=== PATIENT | female | born 1975 | race Caucasian/White ===

== ENCOUNTER 2018-03-22 09:45 | Inpatient (IN) | payer MEDICAID ==
[~2018-03-22] VITALS: Ht 165.1 cm; Wt 83.2 kg
[2018-03-22] VITALS (23 sets, daily range): BP systolic 92–142; BP diastolic 49–91; BMI 28.4
[2018-03-22] MEDS ORDERED: TRILEPTAL300 MG PO ×2 (09:55→09:56)
[2018-03-22] MEDS ORDERED: CARAFATE1 G PO (09:56)
[2018-03-22] MEDS ORDERED: ZANTAC300 MG PO (09:56)
[2018-03-22] MEDS ORDERED: CELEXA20 MG PO (09:57)
[2018-03-22] MEDS ORDERED: KEPPRA500 MG PO (09:57)
--- NOTE | 2018-03-22 11:06 | NUR ---
PT HAD SMALL SMOFT BM. PERICARE PROVIDED. STATLOCK PLACED ON JIN.
--- NOTE | 2018-03-22 11:13 | NUR ---
SOFT WRIST RESTRAINTS REMOVED AND ROM PROVIDED AT THIS TIME. PT RESTING IN BED QUIETLY AT THIS TIME. WILL CON'T TO MONITOR PATIENT FOR CHANGES.
--- NOTE | 2018-03-22 11:35 | NUR ---
PT HAD SMALL SOFT BM. PERICARE PROVIDED. UPON TURNING PT NOTED TO HAVE BLOOD COMING FROM NOSE. DRIED BLOOD NOTED AROUND NARES. EMS HAD REPORTED TRAUMATIC ATTEMPT AT NGT AT SENDING FACILITY
[2018-03-22 11:39] LABS: HEMATOCRIT 37.7 % (36.0-48.0); HEMOGLOBIN 11.7 g/dL (12-16); MCH 30.2 pg (26.0-34.0); MCV 97.4 fL (80.0-100.0); MEAN PLATELET VOLUME 10.3 fL (7.4-10.4); PLATELET COUNT 333 10x3/uL (130-400); RBC 3.87 10x6/uL (4.00-5.40); RDW 13.5 % (11.5-14.5); WBC 27.7 10x3/uL (4.8-10.8)
[2018-03-22 12:02] LABS: ALBUMIN 2.8 g/dL (3.4-5.0); ALKALINE PHOSPHATASE 94 U/L (46-116); ALT (SGPT) 45 U/L (10-68); BILIRUBIN - TOTAL 0.19 mg/dL (0.2-1.3); CALC OSMOLALITY 328 mosm/kg (275-300); CALCIUM 7.5 mg/dL (8.5-10.1); CARBON DIOXIDE 12.3 mmol/L (21.0-32.0); CKMB 3.6 U/L (0.0-3.6); CREATINE KINASE 318 UL (21-215); CREATININE - SERUM 1.9 mg/dL (0.6-1.3); GLUCOSE 379 mg/dL (74-106); MAGNESIUM - SERUM 1.8 mg/dL (1.8-2.4); POTASSIUM - SERUM 3.4 mmol/L (3.5-5.1); PROTEIN - SERUM 6.6 g/dL (6.4-8.2); SODIUM 156 mmol/L (136-145); UREA NITROGEN 23 mg/dL (7-18); eGFR NON AFRICAN AMERICAN 31 mL/min (90-120)
[2018-03-22 12:03] LABS: CHLORIDE - SERUM 117 mmol/L (98-107)
[2018-03-22 12:12] LABS: LYMPHOCYTES 6 % (15-50); MONOCYTES 1 % (2-11); NEUTROPHILS 85 % (40-80); PLATELET ESTIMATE NORMAL
--- NOTE | 2018-03-22 12:56 | NUR ---
REC'D TO ROOM CV 02. TRANSFERRED TO ICU BED BY TOTAL LIFT. CONNECTED TO MONITOR AND VS OBTAINED. #7.5 OETT PATENT AND CONNECTED TO VENT WITH FOLLOWING SETTINGS TV 600 FIO2 50% AC 10 PEEP +5. JIN PATENT WITH CLEAR YELLOW URINE. WRISTS RESTRAINED BELLA AND SIDE RAILS UP X2. 1305: OGT PLACED BY ROBERTH HOFFMANN WITH IMMEDIATE RETURN DARK BROWN STOMACH CONTENTS. POSITIVE PLACEMENT VERIFIED BY AUSCULTATION OF AIR BOLUS.
[2018-03-22] MEDS ORDERED: SEROQUEL XR200 MG PO (13:56)
--- NOTE | 2018-03-22 16:55 | NUR ---
1300-DR AHMADI NOTIFIED OF ADMIT-FURTHER ORDERS RECIEVED -DR OLSON NOTIFIED OF VERBAL CONSULT FOR TRIALYSIS CATHETER PLACEMENT-CONSENT OBTAINED FROM PARENTS-PT SEDATED ON VENT-QUESTIONS ANSWERED 1345-DR OLSON AT [facility]-R JUGULAR TRIALYSIS PLACED WITH OUT DIFFICULTY-PORT CXR DONE TO CONFIRM 1430-DR AHMADI INFORMED OF TRIALYSIS CATHETER AVAILABLE-DR ESPINO NOTIFIED OF RENAL CONSULT FOR EMERGENT DIALYSIS TREATMENT-SUSPECTED DRUG OVER DOSE OF UNKNOWN SUBSTANCES-STRONG POSSIBILTY-ANTIFREEZE? 1600-[facility] AT [facility]-CONSENT OBTAINED FROM PARENTS-AND QUESTIONS ANSWERED -1640-DIALYSIS IN PROGRESS
--- NOTE | 2018-03-22 20:00 | NUR ---
REPORT RECEIVED CARE ASSUMED. INITIAL SHIFT ASSESSMENT COMPLETED SEE FLOWSHEET. PT AT THIS TIME WITH EYES OPEN AND RESPONSIVE ALTHOUGH NOT FOLLOWING COMMANDS. REMAINS ON MECHANICAL VENTILATION PER ETT TOLERATING WELL. MONITORED PER STANDARD CVICU PROTOCOL WITH ALL ALARMS SET, VERIFIED AND AUDIBLE AT NURSES STATION. PT IS VISIBLE FROM NURSES STATION. BED IN LOW POSITION. IVF AND TUBING LABELED PER PROTOCOL AND NOT DUE TO BE CHANGED AT THIS TIME. IV FLUIDS, RATES AND CHANGES DOCUMENTED PER FLOWSHEET.
--- NOTE | 2018-03-22 20:41 | NUR ---
DR. AHMADI NOTIFIED OF NEW ABG RESULTS. ORDER TO CONT LIGHT SEDATION THROUGH THE NIGHT, WILL START CPAP TRIALS IN AM. K+ 3.0 - NO COVERAGE ORDERED AT THIS TIME.
--- NOTE | 2018-03-22 21:00 | NUR ---
FAMILY AT BEDSIDE UPDATE GIVEN QUESTIONS ANSWERED. SECURITY WORD ESTABLISHED WITH SPOUSE
--- NOTE | 2018-03-22 22:18 | NUR ---
CALL PLACED TO DR. AHMADI TO VERIFY REGARDING ADMINISTRATION OF HOME MED OF KEPPRA AND TRIPLEPTAL. DR AHMADI ORDERED THESE MEDS PER DOCTOR'S ORDER AND STATED OTHER HOME MEDS TO BE ADDRESSED TOMORROW
--- NOTE | 2018-03-22 22:20 | NUR ---
SPOKE WITH FOURDRINIER WIRE WEAVER OF NEED FOR MEDS ORDERED. SHE WILL OBTAIN AND BRING TO UNIT TO BE ADMINISTERED WHEN AVAILABLE.
--- NOTE | 2018-03-22 23:00 | NUR ---
SHIFT REASSESSMENT COMPLETED. SEDATION VACATION DONE FOR NEURO ASSESSMENT. PT BECAME AGGITATED EYES OPEN TRACKING WITH EYES DID NOT FOLLOW COMMANDS ALTHOUGH MOVING ALL EXTREMETIES. DIFFICULT TO ASSERTAIN WHETHER PT COULD NOT OR WOULD NOT FOLLOW COMMANDS. SEDATION RESUMED DUE TO INCREASING AGGITATION. PT REMAINS TOTAL CARE AT THIS TIME AND IS BEING TURNED AND REPOSITIONED FOR COMFORT. PILLOWS ARE BEING USED TO PROVIDE SUPPORT, RELIEVE PRESSURE ELEVATE ARMS AND FLOAT HEELS. RT HAS BEEN NOTIFIED OF PLAN TO WEAN IN AM.
[2018-03-23] VITALS (23 sets, daily range): BP systolic 92–132; BP diastolic 53–89; BMI 27.6
--- NOTE | 2018-03-23 01:00 | NUR ---
WELDER/INSTALLER NOTIFIED UNABLE TO OBTAIN TRIPLEPTAL UNTIL PHARMACY ARRIVES IN AM. PT HAS HAD NO SEIZURE ACTIVITY THIS SHIFT ALTHOUGH HAS HAD SOME MINOR TREMBLING/SHAKING WHEN SEDATION TURNED OFF FOR VACATION. RESTING AT THIS TIME
--- NOTE | 2018-03-23 03:00 | NUR ---
SHIFT REASSESSMENT COMPLETED SEE FLOWSHEET. NO SIGNIFICANT CHANGES. BATH GIVEN
--- NOTE | 2018-03-23 04:15 | NUR ---
PT HAS BEEN RIDING THE VENT. SEDATION IS BEING TITRATED TO ASSIST PT WITH MORE AWARENESS AND ALERTNESS. CONTINUES TO OPEN EYES DOES MOVE EXTREMETIES BUT DOES NOT FOLLOW ANY COMMANDS.
[2018-03-23 05:05] LABS: BASOPHILS 0.1 % (0-2); EOSINOPHILS 0.1 % (0-7); HEMATOCRIT 31.1 % (36.0-48.0); HEMOGLOBIN 10.2 g/dL (12-16); IMMATURE GRANULOCYTES 0.4 % (0-5); LYMPHOCYTES 12.3 % (15-50); MCHC 32.8 g/dL (31.0-37.0); MEAN PLATELET VOLUME 10.1 fL (7.4-10.4); MONOCYTES 7.8 % (2-11); NEUTROPHILS 79.3 % (40-80); RDW 13.3 % (11.5-14.5)
[2018-03-23 05:07] LABS: MCV 91.5 fL (80.0-100.0); PLATELET COUNT 249 10x3/uL (130-400); WBC 14.3 10x3/uL (4.8-10.8)
[2018-03-23 05:21] LABS: ALBUMIN 2.3 g/dL (3.4-5.0); ANION GAP 13.1 mmol/L (8-16); BILIRUBIN - TOTAL 0.27 mg/dL (0.2-1.3); CALCIUM 7.4 mg/dL (8.5-10.1); CARBON DIOXIDE 30.5 mmol/L (21.0-32.0); CREATININE - SERUM 2.9 mg/dL (0.6-1.3); MAGNESIUM - SERUM 1.3 mg/dL (1.8-2.4); PHOSPHOROUS 2.9 mg/dL (2.5-4.9); POTASSIUM - SERUM 2.6 mmol/L (3.5-5.1); PROTEIN - SERUM 5.8 g/dL (6.4-8.2)
--- NOTE | 2018-03-23 06:00 | NUR ---
SPOKE WITH DR. AHMADI REGARDING LABS SPECIFICALLY POTASSIUM AND MAG. NEW ORDERS RECEIVED AND REPEATED
--- NOTE | 2018-03-23 07:00 | NUR ---
REPORT RECIEVED FROM THE OFF GOING RN. SEE ASSESSMENT IN THE PTS FLOW SHET. DR ESPINO IN THE PTS ROOM. PT SEDATED ON THE VENT. PT NO FOLLOWING COMMANDS. VSS AT THIS TIME. CALL LIGTH IN REACH. WILL CONT POC.
--- NOTE | 2018-03-23 07:45 | NUR ---
DIPROVAN TURNED OFF. WILL MONITOR PT.
--- NOTE | 2018-03-23 08:15 | NUR ---
PT EYES ARE OPEN AND THE PT IS BREATHING OVER THE VENTILATOR. FAMILY AT THE PTS BEDSIDE TALKING WITH THE PT. PT EYES ARE OPEN AND RESPONDS TO VERBAL STIMULI AND WILL OCCASIONALLY ANSWER YES AND NO QUESTIONS BY SHAKING HER HEAD UP AND DOWN AND SIDE TO SIDE. PT WILL NOT HOWEVER FOLLOW COMMANDS SUCH SQUEEZING HER HANDS AND WIGGELING HER TOES. PT SOMEWHAT RESTLESS AND ABLE TO MOVE ALL EXTRIMITES. DR HUSSEIN NOTIFIED AND WAS ORDERD TO CONSULT PULMONOLOGY. DR HOLLOWAY CALLED AND NOTIFIED. DR WERNER CALLED AND STATED TO KEEP THE PT SEDATED. DIRPOVAN WAS RESTARTED. VSS AT THIS TIME. WILL CONT POC.
[2018-03-23 08:31] LABS: AMYLASE - SERUM 42 U/L (25-115); LIPASE 75 U/L (73-393)
[2018-03-23 08:43] LABS: INR 1.36 (0.85-1.17); PROTIME 16.2 SECONDS (11.6-15.0)
[2018-03-23 09:18] LABS: APPEARANCE CLOUDY (CLEAR); COLOR PINK (YELLOW); UDS - AMPHET NEGATIVE QUAL (NEGATIVE); UDS - BARB NEGATIVE QUAL (NEGATIVE); UDS - BENZO POSITIVE QUAL (NEGATIVE); UDS - COCAINE NEGATIVE QUAL (NEGATIVE); UDS - OPIATE NEGATIVE QUAL (NEGATIVE); UDS - PCP NEGATIVE QUAL (NEGATIVE); UDS - THC NEGATIVE QUAL (NEGATIVE)
[2018-03-23 09:19] LABS: BILIRUBIN NEGATIVE (NEGATIVE); EPITHELIAL CELLS RARE /hpf (0-5); GLUCOSE 50 mg/dL (NEGATIVE); KETONE NEGATIVE (NEGATIVE); NITRITE NEGATIVE (NEGATIVE); PROTEIN 3+ mg/dL (NEGATIVE); RED CELLS - URINE >50 /hpf (0-5); UROBILINOGEN NORMAL (NORMAL); WHITE CELLS - URINE 0-5 /hpf (0-5)
[2018-03-23 09:20] LABS: BACTERIA MODERATE /hpf (NONE SEEN); MUCUS <1+ /lpf (NONE SEEN)
--- NOTE | 2018-03-23 09:46 | CN ---
PATIENT NAME:STELLA LYLES MEDICAL RECORD: [id number] : 79 LOCATION:[facility].CV02 ADMIT DATE: 03/22/18 ACCOUNT: [id number] CONSULTING PHYSICIAN: MARLYN ESPINO MD REFERRING PHYSICIAN: RODRIGO BONILLA MD DATE OF CONSULTATION: 03/22/2018 NEPHROLOGY CONSULTATION REASON FOR CONSULTATION: Acute kidney injury with unknown ingestion, metabolic acidosis. HISTORY OF PRESENT ILLNESS: A 42-year-old female transferred to Dr. Bonilla, intubated with respiratory failure. She had remained at OSH until 7:00 p.m. the night before for presumed Benadryl overdose and remained obtunded and was concerned for narcotic and polysubstance abuse. The attending physician saw the patient and transferred her for higher level of care. Upon receiving, Dr. Bonilla called me from the Emergency Room where we have arranged for dialysis. REVIEW OF SYSTEMS: Unobtainable. PAST MEDICAL HISTORY: Unspecified convulsions or seizure disorder, multiple suicide attempts, cellulitis, depression, incomplete database. MEDICATIONS: Reported home medications are noted as Trileptal 300 mg b.i.d., Zantac 150 b.i.d., Carafate 1 g a.c. and at bedtime, Celexa 20 b.i.d., and Keppra 500 b.i.d. ALLERGIES: MULTIPLE ALLERGIES, WHICH INCLUDE SULFA AND LEVAQUIN. SOCIAL HISTORY: Just indicated some drug use. Did not indicate alcohol or tobacco. She apparently is . FAMILY HISTORY: Unobtainable. PHYSICAL EXAMINATION: VITAL SIGNS: Blood pressure 138/88, 90% pulse ox, 97.8 temperature, respiratory rate 17. GENERAL: Intubated, unresponsive female. HEENT: Normocephalic with no trauma. NECK: Supple neck with no JVD or lymphadenopathy. LUNGS: Coarse bilaterally. CHEST: Regular rhythm. S1 and S2, without a rub. ABDOMEN: With positive bowel sounds. No guarding EXTREMITIES: No clubbing, cyanosis, or edema. Nonlateralizing and no rashes are noted. LABORATORY DATA: White count was 27, H&H 11/37, platelet count 333. Sodium 156, potassium 3.4, chloride 117, carbon dioxide 12, BUN 23, creatinine 1.9, glucose 379, magnesium 1.8. Total bilirubin 0.19. ABG significant with a pH of 7.096, CO2 of 18, O2 521. ASSESSMENT AND PLAN: 1. Acute kidney injury with metabolic acidosis. Conservative treatment with hemodialysis, catheter being placed and dialysis performed. We will see if we CONSULT REPORT [id number] STELLA LYLES can obtain more history, but I am not sure family is aware of what she ingested either. 2. Hyperglycemia. Did not see a diagnosis of diabetes or medication and we will follow her sugars. 3. Metabolic acidosis. Dialysis with bicarbonate drip. 4. Hypernatremia. We will have to dialyze her. I discussed with the dialysis nurse regarding her sodium bath. 5. Anemia. We will follow her hematocrit. 6. Suicidal ideation and depression. 7. Seizure disorder according to her medications, but incomplete database here as well. 8. Unknown substance abuse. PLAN: 1. Dialysis. 2. We will follow with you. 3. Antibiotics per primary team. 4. Concerned about her mental status in her history. TRANSINT:[id number] Voice Confirmation ID: [id number] DOCUMENT ID: [id number] MARLYN ESPINO MD at 0946 CC: [id number] DICTATION DATE: 03/23/18 07 PRECISION INSPECTOR: 03/23/18 0917 ADM IN [place] [id number] [place] [id number]
--- NOTE | 2018-03-23 11:27 | NUR ---
DR HOLLOWAY IN THE UNIT.
[2018-03-23 13:00] LABS: ANION GAP 12.7 mmol/L (8-16); CALCIUM 7.8 mg/dL (8.5-10.1); CARBON DIOXIDE 31.1 mmol/L (21.0-32.0)
[2018-03-23 13:01] LABS: MAGNESIUM - SERUM 2.3 mg/dL (1.8-2.4); POTASSIUM - SERUM 3.8 mmol/L (3.5-5.1)
--- NOTE | 2018-03-23 13:11 | NUR ---
LABS RECEIVED. DR FIERRO CALLED AND NOTIFIED. HE IS AWARE OF THE RISE IN BUN AND CREA. NO NEW ORDERS.
--- NOTE | 2018-03-23 13:26 | NUR ---
NON PHARMALOGICAL INTERVENTIONS UNCCUSSEFUL TO BRING HER TEMP DOWN. 102.1 PRN TYLENOL GIVEN.
--- NOTE | 2018-03-23 15:21 | NUR ---
LABORATORY CALLED AND REMINDED TO COLLECT BLOOD CULTUR
--- NOTE | 2018-03-23 15:35 | NUR ---
ERMELINDA PROVIDED FOR THE PT.
--- NOTE | 2018-03-23 16:35 | NUR ---
NO LABOTORY TECH AT THE PTS BEDSIDE FOR BLOOD CULTURE. THEY WHERE CALLED AND NOTIFIED AND REMINDED TO COLLECT BLOOD SAMPLE.
--- NOTE | 2018-03-23 17:24 | NUR ---
PRODUCT DESIGNER AT THE PTS BEDSIDE. BLOOD CULTURE OBTAINED BY TRAILYSIS PORT COLLECTED BY ME AND THE CUPOLA HOIST OPERATOR COLLECTED THE PERIPHRIAL.
--- NOTE | 2018-03-23 19:00 | NUR ---
TODAYS SHIFT ASSESSMENT COMPLETED BUT DATED FOR 03/22/18 AND TIMED 1900. REPORT RECEIVED CARE ASSUMED INIIAL SHIFT ASSESSMENT COMPLETED SEE FLOWSHEET. PT REMAINS ON MECHANICAL VENTILATION AND IS SEDATED WITH DIPROVAN. ALL IVF AND IV LINES ARE CURRENT AND DATED AND TIMED APPROPRIATE. ALL IVF AND RATES/CHANGES DOCUMENTED ON IV GTT FLOWSHEET. IV TUBING/LINE CHANGES DOCUMENTED ON MAY WHEN NEW BAG OF FLUID HUNG. PT CONTINUES TO HAVE A NEUROLOGICAL DEFICIT. DIPROVAN TURNED OFF FOR ASSESSMENT AND PT REMAINS CONFUSED. ONCE IN A GREAT WHILE SHE FOLLOWS A COMMAND BUT FOR THE MOST PART STARES AT OR AROUND IN SPACE. PT CONTINUES TO BE MONITORED PER STANDARD CVICU PROTOCOL WITH ALL ALARMS SET, VERIFIED AND AUDIBLE AT NURSES STATION. BED IN LOW POSITION AND PT IS VISIBLE FROM NURSES STATION
--- NOTE | 2018-03-23 21:00 | NUR ---
FAMILY AT BEDSIDE. QUESTIONS ASKED AND ANSWERED. UPDATE GIVEN. PT MADE NO EFFORT TO ENGAGE WITH FAMILY. SEDATION IS ON AT 45MCK/KG/MIN MEDS GIVEN AFTER VERIFYING PLACEMENT OF NGT WITH AIR BOLUS APPROPRIATE. SEE MAR FOR DOCUMENTATION
--- NOTE | 2018-03-23 22:00 | NUR ---
CALL RECEIVED FROM OJ GAONA. SECURITY WORD VERIFIED AND UPDATE GIVEN.
--- NOTE | 2018-03-23 23:00 | NUR ---
PT INCONTINENT OF LIQUID STOOL PERICARE AND F/C CARE DONE AND BED BATH GIVEN. LINENS CHANGED, PT TOLERATED WELL
[2018-03-24] VITALS (36 sets, daily range): BP systolic 91–133; BP diastolic 52–96; Ht 165.1 cm; Wt 83.2 kg
--- NOTE | 2018-03-24 01:00 | NUR ---
PT RESTING WELL. NO SIGNIFICANT CHANGES
--- NOTE | 2018-03-24 03:00 | NUR ---
PT INCONTINENT OF STOOL PERICARE F/C CARE DONE CONTINUE TO TURN AND REPOSITION Q2H WITH PILLOWS TO ELEVATE ARMS, FLOAT HEELS, PROVIDE SUPPORT AND RELIEVE PRESSURE. SHIFT REASSESSMENT COMPLETED SEE FLOW SHEET.
--- NOTE | 2018-03-24 04:45 | NUR ---
RT AT BESIDE FOR ABG'S TITRATING FIO2 DOWN DUE TO PO2
--- NOTE | 2018-03-24 04:45 | NUR ---
VENT CHANGED TO RATE OF 10 AND F1O2 30%.
--- NOTE | 2018-03-24 05:15 | NUR ---
LABS DRAWN AND SENT FOR ANALYSIS.
[2018-03-24 05:21] LABS: EOSINOPHILS 1.9 % (0-7); HEMATOCRIT 27.7 % (36.0-48.0); HEMOGLOBIN 9.3 g/dL (12-16); IMMATURE GRANULOCYTES 0.1 % (0-5); LYMPHOCYTES 8.2 % (15-50); MCH 30.3 pg (26.0-34.0); MCHC 33.6 g/dL (31.0-37.0); MCV 90.2 fL (80.0-100.0); MEAN PLATELET VOLUME 10.2 fL (7.4-10.4); MONOCYTES 6.4 % (2-11); NEUTROPHILS 82.4 % (40-80); RBC 3.07 10x6/uL (4.00-5.40); RDW 13.4 % (11.5-14.5)
[2018-03-24 05:34] LABS: PLATELET COUNT 173 10x3/uL (130-400)
[2018-03-24 06:09] LABS: CALCIUM 7.8 mg/dL (8.5-10.1); CARBON DIOXIDE 28.2 mmol/L (21.0-32.0); CHLORIDE - SERUM 99 mmol/L (98-107); CREATINE KINASE 319 UL (21-215); GLUCOSE 99 mg/dL (74-106); MAGNESIUM - SERUM 2.3 mg/dL (1.8-2.4); SODIUM 142 mmol/L (136-145)
[2018-03-24 06:16] LABS: CALC OSMOLALITY 289 mosm/kg (275-300); CREATININE - SERUM 5.7 mg/dL (0.6-1.3); PHOSPHOROUS 4.8 mg/dL (2.5-4.9); POTASSIUM - SERUM 3.1 mmol/L (3.5-5.1); UREA NITROGEN 33 mg/dL (7-18); eGFR NON AFRICAN AMERICAN 9 mL/min (90-120)
[2018-03-24 06:19] LABS: CKMB 1.3 U/L (0.0-3.6)
--- NOTE | 2018-03-24 08:52 | NUR ---
PT TURNED AND MOUTH CARE COMPLETED. FAMILY AT BS. POC FOR TODAY REVIEWED. DR ESPINO HERE THIS AM. REC'D AND NOTED ORDERS.
--- NOTE | 2018-03-24 11:17 | NUR ---
HD IN PROGRESS. TITRATED DIPROVAN TO OFF ORDERED BY DR LEAL. DR HUSSEIN HERE.
--- NOTE | 2018-03-24 11:36 | NUR ---
PT RESPONDS TO TACTILE STIMULI WITH FACIAL GRIMACING. DOES NOT FOLLOW COMMAND AT THIS POINT. VENT WEANING PER RT.
--- NOTE | 2018-03-24 13:05 | NUR ---
HD COMPLETED. UF 1L. VSS, FAMILY AT BS.
--- NOTE | 2018-03-24 16:44 | OP ---
PATIENT NAME: STELLA LYLES MEDICAL RECORD: [id number] :79 LOCATION:[facility] D.CV02 ADMISSION DATE:03/22/18 SURGEON: CHANTE OLSON MD DATE OF OPERATION: 03/22/2018 PREOPERATIVE DIAGNOSES: 1. Overdose in need of emergent hemodialysis. 2. Respiratory failure requiring mechanical ventilation. POSTOPERATIVE DIAGNOSES: 1. Overdose in need of emergent hemodialysis. 2. Respiratory failure requiring mechanical ventilation. PROCEDURE: Right neck Trialysis catheter (non-cuffed, non-tunneled 3-lumen hemodialysis catheter). SURGEON: Chante Olson MD BRIM STIFFENER: None. BLOOD LOSS: Minimal. ANESTHESIA: Local. COMPLICATIONS: None. The risks, possible complications and alternatives to the procedure were explained to the patient's family member and a consent form was signed. OPERATIVE COURSE: The patient was seen in the CVICU. The entire procedure was performed in the presence of a female nurse. The patient was positioned in the Trendelenburg position. The right neck was sterilely prepped and draped as was the right upper chest. A local anesthetic was used to infiltrate the skin and subcutaneous tissue at the base of the right neck. I percutaneously accessed the right subclavian vein utilizing an antegrade supraclavicular approach. A guidewire passed easily. A small skin lucy was accomplished. A vessel dilator was used to dilate the subcutaneous tract. A short Trialysis catheter was inserted to the hub. It was sutured in place times 3. All lumens flushed easily and aspirated dark, nonpulsatile blood. A stat portable chest x-ray revealed adequate placement of the Trialysis catheter without radiographic evidence of complication. TRANSINT:[id number] Voice Confirmation ID: [id number] DOCUMENT ID: [id number] OPERATIVE REPORT [id number] STELLA LYLES CHANTE OLSON MD at 1644 CC: [id number] DICTATION DATE: 03/22/181933 ELECTRICAL FITTER: 03/22/182042 ADM IN [place] [id number] [place] [address]
--- NOTE | 2018-03-24 17:42 | MORECARE ---
CASE MANAGEMENT DISCHARGE SUMMARY PATIENT: STELLA LYLES UNIT: [id number] ADM DATE: 03/22/18 AGE: 42 : [birth year] SEX: F ROOM/BED: [facility] AUTHOR: GHASSAN JARAMILLO PHYSICIAN: REFERRING PHYSICIAN: RODRIGO AHMADI MD DATE OF SERVICE: 03/24/18 Discharge Plan Patient Name: STELLA LYLES Facility: [facility]:[place] : 1975 Planned Disposition: Anticipated Discharge Date: Discharge Date: Expected LOS: Initial Reviewer: [email or web address] Initial Review Date: 03/24/2018 Generated: 03/24/18 6:42 pm Patient Name: STELLA LYLES Page [id number] at 1742 All edits/amendments must be made on the electronic document DICTATION DATE: 03/24/181741 PAPERHANGER AND PAINTER: MIGUELINA 03/24/181741 RPT#: [id number] DC DATE: STATUS: ADM IN [facility] [address] [place] [address] END OF REPORT
--- NOTE | 2018-03-24 17:55 | MORECARE ---
CASE MANAGEMENT DISCHARGE SUMMARY PATIENT: STELLA LAKHANI UNIT: [id number] ADM DATE: 03/22/18 AGE: 42 : [birth year] SEX: F ROOM/BED: [facility] AUTHOR: GHASSAN JARAMILLO PHYSICIAN: REFERRING PHYSICIAN: RODRIGO AHMADI MD DATE OF SERVICE: 03/24/18 Discharge Plan Patient Name: STELLA LAKHANI Facility: [facility]:[place] : 1975 Planned Disposition: Anticipated Discharge Date: Discharge Date: Expected LOS: Initial Reviewer: [email or web address] Initial Review Date: 03/24/2018 Generated: 03/24/18 6:55 pm DCPIA - Discharge Planning Initial Assessment Updated by [email or web address]: Yeni Stafford on 03/24/18 5:53 pm * Is the patient Alert and Oriented? No * How many steps to enter\exit or inside your home? * PCP Darwin Martin [place] * Pharmacy [facility] * Preadmission Environment Home with Family * ADLs Independent * Equipment None * List name and contact numbers for known caregivers / representatives who currently or will assist patient after discharge: Saji Lakhani - - [phone] Noris Lakhani - Mother- n-law [phone] * Verbal permission to speak to the caregivers and representatives has been obtained from the patient. N/A * Community resources currently utilized None * Additional services required to return to the preadmission environment? No * Can the patient safely return to the preadmission environment? Yes * Has this patient been hospitalized within the prior 30 days at any hospital? Yes Last DP export: 03/24/18 4:42 pm Patient Name: STELLA LAKHANI Page [phone] at 1755 All edits/amendments must be made on the electronic document DICTATION DATE: 03/24/181754 VEHICLE REFINISHER: MIGUELINA 03/24/181754 RPT#: [id number] DC DATE: STATUS: ADM IN [facility] [address] [place] [address] END OF REPORT
--- NOTE | 2018-03-24 18:02 | MORECARE ---
CASE MANAGEMENT DISCHARGE SUMMARY PATIENT: STELLA LAKHANI UNIT: [id number] ADM DATE: 03/22/18 AGE: 42 : [birth year] SEX: F ROOM/BED: D.[facility] AUTHOR: ELLA,DOC PHYSICIAN: REFERRING PHYSICIAN: RODRIGO AHMADI MD DATE OF SERVICE: 03/24/18 Discharge Plan Patient Name: STELLA LAKHANI Facility: [facility]:[place] : 1975 Planned Disposition: Anticipated Discharge Date: Discharge Date: Expected LOS: Initial Reviewer: [email or web address] Initial Review Date: 03/24/2018 Generated: 03/24/18 7:02 pm Comments DCP- Discharge Planning Updated by [email or web address]: Yeni Stafford on 03/24/18 4:[address] Patient Name: STELLA LAKHANI Admission Status: ER Accout number: [id number] Admission Date: 03-22-2018 : 1975 Admission Diagnosis: Attending: RODRIGO AHMADI Current LOS: 2 Anticipated DC Date: Planned Disposition: Primary [place]: [place] [employer] [place] Discharge Planning Comments: CM met with (Saji) at bedside. Patient currently on ventilator. Saji states that she lived at home with him and their son. He plans for her to return to the home eventually. He states that patient has attempted suicide multiple times and been to several psychiatric facilities who generally keeps her for about 4 days then she is released on more medications to take and do it all over again. He is uncertain as to what she will need upon discharge at this time. CM will continue to follow and assist as needed with discharge planning / needs. Paper Stacker: Yeni Stafford DCPIA - Discharge Planning Initial Assessment Updated by [email or web address]: Yeni Stafford on 03/24/18 5:53 pm * Is the patient Alert and Oriented? No * How many steps to enter\exit or inside your home? * PCP Darwin Covarrubias - [place] * Pharmacy [facility] * Preadmission Environment Home with Family * ADLs Independent * Equipment None * List name and contact numbers for known caregivers / representatives who currently or will assist patient after discharge: Saji Lakhani - - [phone] Noris Lakhani - Mother- n-law [phone] * Verbal permission to speak to the caregivers and representatives has been obtained from the patient. N/A * Community resources currently utilized None * Additional services required to return to the preadmission environment? No * Can the patient safely return to the preadmission environment? Yes * Has this patient been hospitalized within the prior 30 days at any hospital? Yes Last DP export: 03/24/18 4:55 pm Patient Name: STELLA LAKHANI Page [phone] at 1802 All edits/amendments must be made on the electronic document DICTATION DATE: 03/24/181800 PLATE MAKER: MIGUELINA 03/24/181800 RPT#: [id number] DC DATE: STATUS: ADM IN [facility] [address] [place] [address] END OF REPORT
--- NOTE | 2018-03-24 19:15 | NUR ---
REPORT RECEIVED CARE ASSUMED INITIAL SHIFT ASSESSMENT COMPLETED SEE FLOWSHEET. PT REMAINS SUPPORTED PER MECHANICAL VENTILATION VIA ETT. OGT IS CLAMPED AT THIS TIME PLACEMENT VERIFIED PER AIR BOLUS HEARD APPROPRIATE. IVF AND LINES ARE CURRENT AND NOT DUE TO BE CHANGED AT TIME. EACH ARE LABELED APPROPRIATE. RATES AND CHANGES PER IV GTT SHEET. TUBING CHANGES RECORDED ON MAY WHEN IVF BAG CHANGED. PT REMAINS TOTAL CARE FOR ALL ADLS AND IS TURNED AND REPOSITIIONED Q2H WITH PILLOWS TO PROVIDE SUPPORT, RELIEVE PRESSURE ELEVATE ARMS AND FLOAT HEELS. BED IN LOW POSITION AND PT IS VISIBLE AT NURSES STATION. PT BEING MONITORED PER STANDARD CVICU PROTOCOL WITH ALL ALARMS SET, VERIFIED AND AUDIBLE AT NURSES STATION.
--- NOTE | 2018-03-24 20:14 | NUR ---
FAMILY HERE TO SEE PT. QUESTIONS ANSWERED
--- NOTE | 2018-03-24 21:00 | NUR ---
MEDS GIVEN DOCUMENTED ON INITIATED VIA OGT PER KANGARO PUMP. STARTED AT ORDERED RATE OF 10CC/HR. WATER FLUSH BEGAN AT [id number]. WILL CLARIFY FLUSH IN AM. PLACEMENT OF NGT WAS VERIFIED WITH AIR BOLUS HEARD APPROPRIATE.
--- NOTE | 2018-03-24 23:00 | NUR ---
SHIFT REASSESSMENT COMPLETED NO SIGNIFICANT CHANGES
[2018-03-25] VITALS (26 sets, daily range): BP systolic 96–139; BP diastolic 51–86
--- NOTE | 2018-03-25 01:00 | NUR ---
PT NOT LIFTING ARMS OFF OF PILLOW WHERE THEY ARE PROPPED. PT DOES HAVE WITHDRAWL TO PAIN. RESTRAINTS REMOVED AT THIS TIME. PT NOT DEEMED TO BE A RISK FOR SELF EXTUBATION AT THIS TIME
--- NOTE | 2018-03-25 03:00 | NUR ---
CVL DRESSING CHANGED PER ORDERS. NOTE ONLY SUTURE INTACT IS ON ONE WING.. SITE SECURED WITH NEW DRESSING. WILL REPORT TO ONCOMING TR
--- NOTE | 2018-03-25 04:00 | NUR ---
I&O COMPLETED PLACEMENT VERIFIED FOR NGT AND RESIDUAL CHECKED. O RESIDUAL FLUSHED WITH 30CC WATER.
--- NOTE | 2018-03-25 04:45 | NUR ---
RADIOLOGY AT BEDSIDE FOR AM PCXR.
[2018-03-25 05:00] LABS: BASOPHILS 0.6 % (0-2); EOSINOPHILS 2.9 % (0-7); HEMATOCRIT 27.1 % (36.0-48.0); HEMOGLOBIN 8.9 g/dL (12-16); LYMPHOCYTES 7.9 % (15-50); MCH 29.9 pg (26.0-34.0); MCHC 32.8 g/dL (31.0-37.0); MCV 90.9 fL (80.0-100.0); MEAN PLATELET VOLUME 10.7 fL (7.4-10.4); MONOCYTES 8.2 % (2-11); NEUTROPHILS 80.4 % (40-80); PLATELET COUNT 171 10x3/uL (130-400); RBC 2.98 10x6/uL (4.00-5.40); RDW 13.3 % (11.5-14.5); WBC 6.9 10x3/uL (4.8-10.8)
--- NOTE | 2018-03-25 05:00 | NUR ---
RT AT BEDSIDE FOR AM ABG PER ORDER
[2018-03-25 05:27] LABS: ANION GAP 15.5 mmol/L (8-16); CALCIUM 7.9 mg/dL (8.5-10.1); CARBON DIOXIDE 26.1 mmol/L (21.0-32.0); CREATININE - SERUM 4.7 mg/dL (0.6-1.3); PHOSPHOROUS 5.4 mg/dL (2.5-4.9)
[2018-03-25 05:36] LABS: POTASSIUM - SERUM 3.6 mmol/L (3.5-5.1)
--- NOTE | 2018-03-25 05:49 | NUR ---
LABS REVIEWED NO ACTION NEEDED AT THIS TIME
--- NOTE | 2018-03-25 08:30 | NUR ---
PT TURNED AND TITRATED DIPROVAN DOWN TO 1/2 RATE FOR SEDATION VACATION. WILL TITRATE OFF FOR SEDATION VACATION. BUE WRIST RESTRAINTS APPLIED TO KEEP PT FROM SELF EXTUBATION WITH SEDATION VACATION TRIALS.
--- NOTE | 2018-03-25 10:25 | NUR ---
DIPROVAN OFF. PT TURNED AND REPOSITIONED. PT OPENS EYES TO VERBAL STIMULI. NO PURPOSEFUL MOVEMENT NOTED. GAG REFLEX NOTED.
--- NOTE | 2018-03-25 10:41 | NUR ---
Reviewed chart Pt remains NPO, started on Nepro tube feeding at 10mL/hour Recommend to advance as tolerated to a goal rate of 40mL/hour and flush with 10mL/hour of water This regimen provides 1728 calories, 78gm protein, and 937mL water RD following per protocol
--- NOTE | 2018-03-25 16:10 | NUR ---
PT COUGHING AND GAGING AND RESP RATE INCREASING TO 42BMP. TITRATED DIPROVAN ORDERED FOR SEDATION.
--- NOTE | 2018-03-25 17:06 | NUR ---
PT INC OF STOOL. BATH AND LINEN CHANGE COMPLETE. PT OPENS EYES ON COMMAND BUT NOT CONSISTENT. OPENS EYES TO PAINFUL STIMULI. DOES NOT FOLLOW COMMAND OTHERWISE.
--- NOTE | 2018-03-25 19:00 | NUR ---
REPORT RECEIVED CARE ASSUMED INITIAL SHIFT ASSESSMENT COMPLETED SEE FLOWSHEET. PT REMAINS ON MECHANICAL VENTILATION. SETTINGS AND CHANGES PER FLOWSHEET. IVF AND IV LINES ARE CURRENT AT THIS TIME AND NOT DUE TO BE CHANGED. ALL FLUIDS AND RATES/CHANGES PER IV FLOWSHEET. PT RECEIVING NEPRO PER OGT PLACEMENT VERIFIED PER AIR BOLUS HEARD APPROPRIATELY RESIDUAL VERIFIED CONTINUE AT 30CC/HR. PT REMAINS TOTAL CARE FOR ALL ADLS WITH COMFORT GLIDE SHEET USED FOR REPOSITIONING. PILLOWS USED TO PROVIDE SUPPORT, ELEVATE ARMS, FLOAT HEELS AND RELIEVE PRESSURE. BED IN LOW POSITION PT IN VIEW OF NURSES STATION
--- NOTE | 2018-03-25 19:45 | CN ---
PATIENT NAME:STELLA LAKHANI MEDICAL RECORD: [id number] : 79 LOCATION:[facility] ADMIT DATE: 03/22/18 ACCOUNT: [id number] CONSULTING PHYSICIAN: KARUNA LEAL MD REFERRING PHYSICIAN: RODRIGO BONILLA MD DATE OF CONSULTATION: 03/23/2018 CONSULT REQUESTING PHYSICIAN: Dr. Bonilla REASON FOR CONSULTATION: Vent management. HISTORY OF PRESENT ILLNESS: Ms. Lakhani is a 42-year-old female who was transferred from other facility for advanced care. The patient presented with mental status changes, obtunded, and the patient was electively intubated. Workup showed the patient with severe hypernatremia, metabolic acidosis. Initially there was also some lactic acidosis. The patient emergently dialyzed yesterday, but the patient is still unresponsive and she remained orally intubated. REVIEW OF SYSTEMS: The detail is not obtainable. PAST MEDICAL HISTORY: 1. Possible convulsion. 2. History of cellulitis. 3. Depression. 4. Multiple suicidal attempts in the past. 5. Drug addiction. ALLERGIES: SHE IS ALLERGIC TO SULFA AND LEVAQUIN, SULFA AND TRIMETHOPRIM. MEDICATIONS: On [employer] is reviewed. PERSONAL AND SOCIAL HISTORY: The patient has history of drug abuse. The smoking and drinking history is not obtainable. FAMILY HISTORY: Not obtainable. PHYSICAL EXAMINATION: GENERAL: Now, the patient is orally intubated and sedated. VITAL SIGNS: The blood pressure is 106/57, pulse is 81, respirations 16, temperature 100, SPO2 is 98% on mechanical ventilation, assist control, FIO2 40%, tidal volume 500, PEEP of 5. Respiration is 14. HEENT: Conjunctivae are pink. Sclerae nonicteric. NECK: Supple, no JVD. CHEST: There are right-sided crackles. No wheezing. HEART: Rhythm is regular, normal sound, no murmur. ABDOMEN: Soft, bowel sounds present. No hepatosplenomegaly. RECTAL: Deferred. EXTREMITIES: No cyanosis, no clubbing, no pedal edema. CENTRAL NERVOUS SYSTEM: The patient is unresponsive. She is also sedated. CHEST RADIOGRAPH: There is infiltrate in the right lower lobe. ET tube is in good position. OTHER LABORATORY DATA: CBC: WBC is 27.7, hemoglobin is 11.7, hematocrit 37.7, CONSULT REPORT [id number] STELLA LAKHANI the platelet count 333. Chemistry: Sodium is 156 on admission, now it is 144, potassium 2.6, chloride 103, bicarbonate is 30.5, BUN is 18, creatinine 2.9. ABG: The pH is 7.53, pCO2 is 33.8, the pO2 is 138, bicarbonate is 28.7. On admission, her pH was 7.09, pCO2 was 18.8, pO2 was 521. Bicarb is 5.8. The lactic acid was 3.86. IMPRESSION: 1. Acute respiratory failure. 2. Drug overdose with significant metabolic acidosis, possible Antifreeze overdose. 3. Lactic acidosis that is improving. 4. Right lower lobe pneumonia, possible aspiration when the patient was obtunded. 5. Hypokalemia. 6. Leukocytosis. 7. Fever, the source possibly secondary to pneumonia. 8. Acute renal failure. 9. Suicide attempt. 10. Hypernatremia. 11. Fever of unknown origin. RECOMMENDATION: 1. Continue mechanical ventilation. 2. The patient got emergent dialysis. 3. Start her on empiric antibiotic, doxycycline IV and Zosyn IV. 4. Deep vein thrombosis prophylaxis. 5. GI stress ulcer prevention. 6. Correct electrolytes. 7. Check the blood cultures, sputum culture, and urine culture. 8. Follow up on ethylene glycol and methyl alcohol level, which has gone outside the facility. If it is high, we will consult Po[facility]. 9. Follow up labs and chest radiograph. Discussed with RN RT. We will try to wean her when the patient is more awake and alert. Dr. Bonilla, thank you for involving me in the care of Ms. Lakhani. TRANSINT:[id number] Voice Confirmation ID: [id number] DOCUMENT ID: [id number] KARUNA LEAL MD at 1943 CC: [id number] DICTATION DATE: 03/23/18 1212 PICKING CREW SUPERVISOR: 03/23/18 1341 ADM IN [place] [id number] [place] [id number]
--- NOTE | 2018-03-25 20:45 | NUR ---
CALL RECEIVED FROM DAD, SECURITY WORD VERIFIED UPDATE GIVEN QUESTIONS ANSWERED
--- NOTE | 2018-03-25 21:00 | NUR ---
PT INCONTINENT OF LIQUID STOOL. PERICARE AND F/C CARE DONE WITH A PARTIAL LINEN CHANGE. PT MORE ALERT AND SITTING UP IN BED. [place] FOR EFFECTIVENESS. SEE GTT FLOWSHEET FOR CHANGES
--- NOTE | 2018-03-25 22:00 | NUR ---
CALL RECEIVED FROM [employer] SECURITY WORD VERIFIED QUESTIONS ANSWERED UPDATE GIVEN. NO FAMILY PRESENT THIS VISITING SESSION
[2018-03-26] VITALS (24 sets, daily range): BP systolic 100–129; BP diastolic 54–86
--- NOTE | 2018-03-26 01:05 | NUR ---
CALL RECEIVED FROM JO GAONA SECURITY WORD VERIFIED UPDATE GIVEN QUESTIONS ANSWERED
--- NOTE | 2018-03-26 03:00 | NUR ---
SHIFT REASSESSMENT COMPLETED SEE FLOWSHEET. PT HAS BEEN RESTING QUIETLY TONIGHT. CONTINUES TO REQUIRE 100% ASSISTANCE WITH ADL'S. PLACEMENT VERIFIED WITH OGT, RESIDUAL ALSO CHECKED. INCREASED NEPRO TO 40ML/HR WITH A [id number] FLUSH ALL DELIVERED PER KANGARO PUMP. NO OTHER SIGNIFICANT CHANGES
[2018-03-26 07:01] LABS: ANION GAP 18.8 mmol/L (8-16); CALCIUM 7.7 mg/dL (8.5-10.1); CARBON DIOXIDE 25.5 mmol/L (21.0-32.0); PHOSPHOROUS 6.7 mg/dL (2.5-4.9); POTASSIUM - SERUM 3.3 mmol/L (3.5-5.1)
[2018-03-26 07:02] LABS: CREATININE - SERUM 6.8 mg/dL (0.6-1.3)
--- NOTE | 2018-03-26 07:36 | NUR ---
OPEN EYES TO STIMULATION . NOT OBEYING ANY COMMANDS. GRIMACES TO ANY PAINFUL STIMULI. ETT SECURE TO VENT. BILATERAL LUNG SOUNDS EQUAL. RIJ TRIALYSIS CATH SECURE INFUSING WITH PLAMALYTE AT 50 ML HOUR, DIPIRIVAN AT 30 MCG/KG/MIN. DECREASED TO 15 MCG/KG/MIN. FOR VENT WEANING. JIN CATH PATENT DRAINING RED URINE. SCD ON LOWER LEGS. DR. ESPINO HERE. NEW ORDERS NOTED
[2018-03-26 08:05] LABS: HEMATOCRIT 25.6 % (36.0-48.0); HEMOGLOBIN 8.8 g/dL (12-16); LYMPHOCYTES 13.5 % (15-50); MCH 31.2 pg (26.0-34.0); MCHC 34.4 g/dL (31.0-37.0); MCV 90.8 fL (80.0-100.0); MEAN PLATELET VOLUME 11.5 fL (7.4-10.4); PLATELET COUNT 147 10x3/uL (130-400); RBC 2.82 10x6/uL (4.00-5.40); RDW 12.9 % (11.5-14.5)
--- NOTE | 2018-03-26 09:30 | NUR ---
OPENS EYES TO VERBAL STIMULATION. WHEN SUCTION DOES TURN ARMS INWARD. DOES NOT DO ANY MEANINGFUL MOVEMENT IN EXTREMITIES. HOLDS HEAD UP AND TURNS HEAD FROM SIDE TO SIDE. DOES NOT MAKE EYE CONTACT. DOES GRIMACE TO PAINFUL STIMULI IN ALL EXTREMITIES. FAMILY HERE UPDATE GIVEN.
--- NOTE | 2018-03-26 10:32 | NUR ---
Nutrition Follow Up: Chart reviewed and spoke with nursing. Pt is tolerating TF of Nepro @ 40 ml/hr with 10 ml/hr H2O flushes (goal rate). BM: 03/26/18 Wt gain noted I>O Labs reviewed Meds noted including Diprivan @ 14 ml/hr providing 370 kcal/d Rec continue current TF regimen as tolerated. RD following.
--- NOTE | 2018-03-26 11:00 | NUR ---
MOD SIZE SEMI LIQUID STOOL GREEN IN COLOR. PERICARE DONE. NO SKIN BREAKDOWN NOTED.
--- NOTE | 2018-03-26 11:23 | NUR ---
TOLERATING CPAP WELL. NO DISTRESS. RESP RATE BELOW 20
--- NOTE | 2018-03-26 11:25 | NUR ---
NO RESIDUAL ON FEEDING TUBE. NEPRO CONTINUES AT 40 ML HOUR. TOLERATING WELL AT THIS TIME
--- NOTE | 2018-03-26 12:08 | NUR ---
FAMILY HERE UPDATE GIVEN. OPENS EYES EASILY TO STIMULATION. STILL NOT MOVING EXTREMITIES
--- NOTE | 2018-03-26 14:00 | NUR ---
LARGE LIQUID GREEN STOOLS, PERICARE DONE. TOLERATING CPAP WELL. RESP BELOW 20 SUCTION CLEAR AND WHITE SPUTUM FROM ETT. CLEAR FROM MOUTH. GOOD COUGH REFLEX
--- NOTE | 2018-03-26 14:35 | NUR ---
REPORT CALLED TO JERONIMO PEARCE. PATIENT TO TRANSFER TO ROOM ICU 10. JORGE OF PATIENT CALLED AT [phone] AND NOTIFIED OF NEW ROOM NUMBER DIRECTION TO ICU UNIT PROVIDED.
--- NOTE | 2018-03-26 15:09 | MORECARE ---
CASE MANAGEMENT DISCHARGE SUMMARY PATIENT: STELLA LAKHANI UNIT: [id number] ADM DATE: 03/22/18 AGE: 42 : [birth year] SEX: F ROOM/BED: D[facility] AUTHOR: ELLA,DOC PHYSICIAN: REFERRING PHYSICIAN: RODRIGO AHMADI MD DATE OF SERVICE: 03/26/18 Discharge Plan Patient Name: STELLA LAKHANI Facility: [facility]:[place] : 1975 Planned Disposition: Anticipated Discharge Date: Discharge Date: Expected LOS: Initial Reviewer: [email or web address] Initial Review Date: 03/24/2018 Generated: 03/26/18 4:09 pm Comments DCP- Discharge Planning Updated by [email or web address]: Yeni Stafford on 03/26/18 2:[address] CM received notice that patient needs to be transferred to higher level of care for neurology evaluation. CM notified transfer center and faxed records. CM will continue to follow and assist with discharge planning / needs. DCP- Discharge Planning Updated by [email or web address]: Yeni Stafford on 03/24/18 4:[address] Patient Name: STELLA LAKHANI Admission Status: ER Accout number: [id number] Admission Date: 03-22-2018 : 1975 Admission Diagnosis: Attending: RODRIGO AHMADI Current LOS: 2 Anticipated DC Date: Planned Disposition: Primary Insurance: [place] [employer]IONS JO[employer] Discharge Planning Comments: CM met with (Saji) at bedside. Patient currently on ventilator. Saji states that she lived at home with him and their son. He plans for her to return to the home eventually. He states that patient has attempted suicide multiple times and been to several psychiatric facilities who generally keeps her for about 4 days then she is released on more medications to take and do it all over again. He is uncertain as to what she will need upon discharge at this time. CM will continue to follow and assist as needed with discharge planning / needs. Shell Fisherman: Yeni Stafford DCPIA - Discharge Planning Initial Assessment Updated by [id number]: Yeni Stafford on 03/24/18 5:53 pm * Is the patient Alert and Oriented? No * How many steps to enter\exit or inside your home? * PCP Darwin Covarrubias - [place] * Pharmacy [facility] * Preadmission Environment Home with Family * ADLs Independent * Equipment None * List name and contact numbers for known caregivers / representatives who currently or will assist patient after discharge: Saji Lakhani - - [phone] Noris Lakhani - Mother- n-law [phone] * Verbal permission to speak to the caregivers and representatives has been obtained from the patient. N/A * Community resources currently utilized None * Additional services required to return to the preadmission environment? No * Can the patient safely return to the preadmission environment? Yes * Has this patient been hospitalized within the prior 30 days at any hospital? Yes External Providers External Provider: [facility]SF[facility] Next Contact Date: Service Request Date: Service Type: Resolution: Reviewer: Comments: Last DP export: 03/24/18 5:02 pm Patient Name: STELLA LAKHANI Page [id number] at 1509 All edits/amendments must be made on the electronic document DICTATION DATE: 03/26/18 1509 INSULATOR TECHNICIAN: MIGUELINA 03/26/18 1509 RPT#: [id number] DC DATE: STATUS: ADM IN [facility] [address] [place] [address] END OF REPORT
--- NOTE | 2018-03-26 15:30 | NUR ---
TO CT SCAN FOR HEAD CT SCAN ON WAY TO ICU. TOLERATED TRANSFER WELL. DIALYSIS SETTING UP IN ICU 10
[2018-03-26] MEDS ORDERED: Keppra Premix IV (16:10)
--- NOTE | 2018-03-26 17:01 | MORECARE ---
CASE MANAGEMENT DISCHARGE SUMMARY PATIENT: STELLA LAKHANI UNIT: [id number] ADM DATE: 03/22/18 AGE: 42 : [birth year] SEX: F ROOM/BED: D.2310 AUTHOR: ELLA,DOC PHYSICIAN: REFERRING PHYSICIAN: RODRIGO AHMADI MD DATE OF SERVICE: 03/26/18 Discharge Plan Patient Name: STELLA LAKHANI Facility: [facility]:[place] : 1975 Planned Disposition: Anticipated Discharge Date: Discharge Date: Expected LOS: Initial Reviewer: [email or web address] Initial Review Date: 03/24/2018 Generated: 03/26/18 6:01 pm Comments DCP- Discharge Planning Updated by [email or web address]: Yeni Stafford on 03/26/18 3:[address] CM notified that [facility] in has accepted patient. Awaiting call back on room number and information to call report. Transfer center to assist with transportation upon bed determination. CM spoke with patients Saji and explained the plan for transportation to [facility]. He asked to be notified when transfer occurs [phone] and Noris [id number] [phone]. CM will continue to follow and assist with discharge planning / needs. DCP- Discharge Planning Updated by [email or web address]: Yeni Stafford on 03/26/18 2:[address] CM received notice that patient needs to be transferred to higher level of care for neurology evaluation. CM notified transfer center and faxed records. CM will continue to follow and assist with discharge planning / needs. DCP- Discharge Planning Updated by [email or web address]: Yeni Stafford on 03/24/18 4:[address] Patient Name: STELLA LAKHANI Admission Status: ER Accout number: [id number] Admission Date: 03-22-2018 : 1975 Admission Diagnosis: Attending: RODRIGO AHMADI Current LOS: 2 Anticipated DC Date: Planned Disposition: Primary Insurance: [place] PRIVATE OPTIONS JOÃO Discharge Planning Comments: CM met with (Saji) at bedside. Patient currently on ventilator. Saji states that she lived at home with him and their son. He plans for her to return to the home eventually. He states that patient has attempted suicide multiple times and been to several psychiatric facilities who generally keeps her for about 4 days then she is released on more medications to take and do it all over again. He is uncertain as to what she will need upon discharge at this time. CM will continue to follow and assist as needed with discharge planning / needs. Dough Cutter: Yeni Stafford DCPIA - Discharge Planning Initial Assessment Updated by [email or web address]: Yeni Stafford on 03/24/18 5:53 pm * Is the patient Alert and Oriented? No * How many steps to enter\exit or inside your home? * PCP Darwin Covarrubias - [place] * Pharmacy [facility] * Preadmission Environment Home with Family * ADLs Independent * Equipment None * List name and contact numbers for known caregivers / representatives who currently or will assist patient after discharge: Saji Lakhani - - [phone] Noris Lakhani - Mother- n-law [phone] * Verbal permission to speak to the caregivers and representatives has been obtained from the patient. N/A * Community resources currently utilized None * Additional services required to return to the preadmission environment? No * Can the patient safely return to the preadmission environment? Yes * Has this patient been hospitalized within the prior 30 days at any hospital? Yes Last DP export: 03/26/18 2:09 p Patient Name: STELLA LAKHANI Page [id number] at 1701 All edits/amendments must be made on the electronic document DICTATION DATE: 03/26/181699 FRAUD PREVENTION ANALYST: MIGUELINA 03/26/181699 RPT#: [id number] DC DATE: STATUS: ADM IN [facility] [address] [place] [address] END OF REPORT
--- NOTE | 2018-03-26 23:20 | NUR ---
REPORT CALLED TO SHUN ALBA AT [facility]. PT IS TRANSFERRING TO ICU RM2.
[2018-03-27] VITALS: BP 102/66
[2018-03-27 01:00] VITALS: BP 114/77
--- NOTE | 2018-03-27 01:25 | NUR ---
PT TRANSFERRING TO [facility]IA [facility].
--- NOTE | 2018-03-27 10:08 | MORECARE ---
CASE MANAGEMENT DISCHARGE SUMMARY PATIENT: STELLA LAKHANI UNIT: [id number] ADM DATE: 03/22/18 AGE: 42 : [birth year] SEX: F ROOM/BED: D.2310 AUTHOR: ELLA,DOC PHYSICIAN: REFERRING PHYSICIAN: RODRIGO AHMADI MD DATE OF SERVICE: 03/27/18 Discharge Plan Patient Name: STELLA LAKHANI Facility: [facility]:[place] : 1975 Planned Disposition: Anticipated Discharge Date: Discharge Date: 03/27/2018 Expected LOS: Initial Reviewer: [email or web address] Initial Review Date: 03/24/2018 Generated: 03/27/18 11:08 am Comments DCP- Discharge Planning Updated by [email or web address]: Yeni Stafford on 03/26/18 3:[address] CM notified that [facility] in has accepted patient. Awaiting call back on room number and information to call report. Transfer center to assist with transportation upon bed determination. CM spoke with patients Saji and explained the plan for transportation to [facility]. He asked to be notified when transfer occurs [phone] and Noris [id number] [phone]. CM will continue to follow and assist with discharge planning / needs. DCP- Discharge Planning Updated by [email or web address]: Yeni Stafford on 03/26/18 2:[address] CM received notice that patient needs to be transferred to higher level of care for neurology evaluation. CM notified transfer center and faxed records. CM will continue to follow and assist with discharge planning / needs. DCP- Discharge Planning Updated by [email or web address]: Yeni Stafford on 03/24/18 4:[address] Patient Name: STELLA LAKHANI Admission Status: ER Accout number: [id number] Admission Date: 03-22-2018 : 1975 Admission Diagnosis: Attending: RODRIGO AHMADI Current LOS: 2 Anticipated DC Date: Planned Disposition: Primary Insurance: [place] PRIVATE [employer]IONS JO[employer] Discharge Planning Comments: CM met with (Saji) at bedside. Patient currently on ventilator. Saji states that she lived at home with him and their son. He plans for her to return to the home eventually. He states that patient has attempted suicide multiple times and been to several psychiatric facilities who generally keeps her for about 4 days then she is released on more medications to take and do it all over again. He is uncertain as to what she will need upon discharge at this time. CM will continue to follow and assist as needed with discharge planning / needs. Brick Chimney Supervisor: Yeni Stafford DCPIA - Discharge Planning Initial Assessment Updated by [id number]: Yeni Stafford on 03/24/18 5:53 pm * Is the patient Alert and Oriented? No * How many steps to enter\exit or inside your home? * PCP Darwin Covarrubias - [place] * Pharmacy [facility] * Preadmission Environment Home with Family * ADLs Independent * Equipment None * List name and contact numbers for known caregivers / representatives who currently or will assist patient after discharge: Saji Lakhani - - [phone] Noris Lakhani - Mother- n-law [phone] * Verbal permission to speak to the caregivers and representatives has been obtained from the patient. N/A * Community resources currently utilized None * Additional services required to return to the preadmission environment? No * Can the patient safely return to the preadmission environment? Yes * Has this patient been hospitalized within the prior 30 days at any hospital? Yes Last DP export: 03/26/18 4:01 p Patient Name: STELLA LAKHANI Page [id number] at 1008 All edits/amendments must be made on the electronic document DICTATION DATE: 03/27/18 1008 QUALITY CONTROL HEAD: MIGUELINA 03/27/18 1008 RPT#: [id number] DC DATE:03/27/18 STATUS: DIS IN [facility] [address] [place] [address] END OF REPORT
== END 2018-03-27 01:30 | disposition short-term general hospital (02) | DRG 917 ==
LOC: D.ER 09:45 → D.CVICU 12:21 → D.ICU 03-26 15:19
PROVIDERS: Family Medicine; Internal Medicine Nephrology; ADMIT Internal Medicine Nephrology
PROC: 05H533Z Insertion of Infusion Device into Right Subclavian Vein, Percutaneous Approach (ICD-10-PCS; principal; 2018-03-22)
PROC: 5A1955Z Respiratory Ventilation, Greater than 96 Consecutive Hours (ICD-10-PCS; 2018-03-22)
DX: T50.902A Poisoning by unspecified drugs, medicaments and biological substances, intentional self-harm, initial encounter (principal); J96.00 Acute respiratory failure, unspecified whether with hypoxia or hypercapnia; J18.1 Lobar pneumonia, unspecified organism; E87.2 Acidosis; N17.9 Acute kidney failure, unspecified; E87.0 Hyperosmolality and hypernatremia; E87.6 Hypokalemia; D72.829 Elevated white blood cell count, unspecified; F31.9 Bipolar disorder, unspecified; R41.82 Altered mental status, unspecified; E83.39 Other disorders of phosphorus metabolism; D64.9 Anemia, unspecified; G83.89 Other specified paralytic syndromes; R50.9 Fever, unspecified